=== PATIENT | female | born 1960 | race African-American/Black ===

== ENCOUNTER 2016-06-28 20:38 | Emergency (ER) | payer MEDICAID, OTHER ==
[~2016-06-28] VITALS: Ht 157.5 cm; Wt 72.6 kg
[~2016-06-28 20:38] MED LIST: AZITHROMYCIN250 MG PO; CYCLOBENZAPRINE10 MG ORAL; FLONASE1 SPRAYS; FLONASE1 SPRAYS NASAL; HYDROCHLOROTHIA25 MG ORAL; IBUPROFEN600 MG ORAL; LIDODERM700 M1 TOPIC; LORATADINE10 M2 PO; NAPROXEN250 MG PO; NORCO 5-325 TA1 EACH ORAL; PERCOCET 5-3251 EACH PO; SOMA350 MG PO; SYNTHROID25 MCG ORAL; VISTARIL25 MG ORAL; VOLTAREN100 G1 TP
[2016-06-28] MEDS ORDERED: ROBAXIN-750750 MG PO (20:57)
[2016-06-28 21:11] VITALS: BP 142/72
[2016-06-28 21:19] VITALS: BP 142/72
--- NOTE | 2016-06-28 22:18 | Emergency Room Report ---
History of Present Illness General Chief Complaint: Neck Pain Source: Patient Present Illness HPI Patient is a 55-year-old female who presented after increased neck pain. Patient gradual onset of symptoms. Patient had recent trauma. Patient states that she's had chronic pain or neck for several years and had had prior CTs of her neck which showed multiple level degenerative disc disease. Patient denied any headache. She reported having decreased efficacy of her pain medication. Allergies: Coded Allergies: No Known Allergies (Unverified , 06/21/12) Patient History Past Medical History: see triage record Now: No Reviewed Nursing Documentation: PMH: Agreed, PSxH: Agreed Nursing Documentation-PMH Hx Cardiac Problems: Yes - partial hysterectomy 2006 Hx Hypertension: Yes Hx Cancer: No Hx Gastrointestinal Problems: No Review of Systems All Other Systems: negative except mentioned in HPI Physical Exam Vital Signs Date Time Temp Pulse Resp B/P Pulse Ox O2 Delivery O2 Flow Rate FiO2 06/28/16 20:44 97.3 105 21 145/75 98 Room Air General Appearance: well appearing, no apparent distress, alert, GCS 15 Head: normocephalic, atraumatic ENT: hearing grossly normal, normal voice Neck: full range of motion, supple Respiratory: no respiratory distress, speaking full sentences Cardiovascular #1: normal inspection, regular rate, rhythm Gastrointestinal: normal inspection, normal bowel sounds, soft Musculoskeletal: no calf tenderness, decreased range of mation, other - muscle spasm to neck posteriorly Neurologic: oriented x3, normal gait Psychiatric: mood/affect normal Skin: no rash Medical Decision Making Diagnostic Impression: Primary Impression: Chronic pain ER Course Patient presented for neck pain.Differential diagnosis included vertebral artery dissection, myocardial infarction, cervical fracture, arthritis, spondylolithises. Patient's benign exam and does not appear to require any further imaging or laboratory testing at this time. This presented a chronic issue. The patient was given Valium in the emergency department. She is given prescription for Robaxin. She is advised followup with her pain management doctor as well as her primary care physician. Last Vital Signs Date Time Temp Pulse Resp B/P Pulse Ox O2 Delivery O2 Flow Rate FiO2 06/28/16 21:19 97.3 101 18 142/72 98 Room Air Status: improved Disposition: HOME, SELF-CARE Condition: Stable Scripts Methocarbamol* (ROBAXIN-750*) 750 Mg Tablet 750 MG PO TID, #21 TAB 0 Refills Prov: Nomi Quick 06/28/16 Referrals: NON PHYSICIAN (PCP) Patient Instructions: Chronic Pain Nomi Quick Jun 28, 2016 22:18
== END 2016-06-28 21:21 | disposition home or self-care (01) ==
LOC: EMR 21:00
DX: G89.29 Other chronic pain (principal); I10 Essential (primary) hypertension; Z90.710 Acquired absence of both cervix and uterus
CPT/HCPCS: 99283

== ENCOUNTER 2016-12-31 19:50 | Emergency (ER) | payer OTHER ==
[~2016-12-31] VITALS: Ht 157.5 cm; Wt 71.2 kg
[~2016-12-31 19:50] MED LIST changes: +ROBAXIN-750750 MG PO
[2016-12-31] MEDS ORDERED: Ketorolac 60mg Inj IM ONE (20:45)
[2016-12-31] MEDS ORDERED: IBUPROFEN600 MG ORAL (21:09)
[2016-12-31 21:22] VITALS: BP_SYST 112; BP_SYST 124; BP_DIAS 69; BP_DIAS 71
--- NOTE | 2016-12-31 22:04 | Emergency Room Report ---
History of Present Illness General Chief Complaint: Pain Source: Patient, Medical Record Present Illness HPI Patient is a 56-year-old female who presented after increased right ankle pain. Patient gradual onset of symptoms after inverting her ankle. Injury occurred approximately 3 days ago. The patient reported havingThe patient reported increased difficulty with ambulation. Patient had not felt any popping or crepitance. The patient stated she had been lying in bed. She denied any fever. Allergies: Coded Allergies: No Known Allergies (Unverified , 06/21/12) Patient History Last Menstrual Period: 2006 Now: No : 6 Para: 3 Nursing Documentation-PMH Hx Cardiac Problems: Yes - partial hysterectomy 2006 Hx Hypertension: Yes Hx Cancer: No Hx Gastrointestinal Problems: No Physical Exam Vital Signs Date Time Temp Pulse Resp B/P Pulse Ox O2 Delivery O2 Flow Rate FiO2 12/31/16 20:03 99.0 66 15 112/69 100 Room Air General Appearance: well appearing, no apparent distress, alert, GCS 15 Head: normocephalic, atraumatic ENT: hearing grossly normal, normal voice Neck: full range of motion, supple Respiratory: no respiratory distress, speaking full sentences Musculoskeletal: normal inspection, back normal, no calf tenderness, swelling - lateral malleolus, tender to posterior malleolus Neurologic: normal gait Psychiatric: mood/affect normal Skin: no rash Medical Decision Making Diagnostic Impression: Primary Impression: Right ankle sprain ER Course Patient presented for ankle pain. Differential diagnosis included was not limited to sprain, fracture, dislocation, cellulitis, vascular insufficiency. X -ray imaging of the ankle was ordered. X-ray imaging of the right ankle previous triggered by me showed normal alignment without fracture Other X-Ray Diagnostic Results Other X-Ray Diagnostic Results : # of Views/Limited Vs Complete: 3 View Indication: Pain EP Interpretation: Yes Interpretation: no dislocation, no fractures, other - soft tissue swelling Last Vital Signs Date Time Temp Pulse Resp B/P Pulse Ox O2 Delivery O2 Flow Rate FiO2 12/31/16 21:22 99.0 15 112/69 100 Room Air 12/31/16 21:22 88 Status: improved Disposition: HOME, SELF-CARE Condition: Stable Scripts Ibuprofen* (MOTRIN*) 600 Mg Tablet 600 MG ORAL Q8H Y for For Pain, #30 TAB 0 Refills Prov: Nomi Quick 12/31/16 Referrals: SHIVAM OHARA,REFERRING (PCP) Patient Instructions: Ankle Sprain Nomi Quick Dec 31, 2016 22:04
--- NOTE | 2017-01-01 10:44 | Diagnostic Imaging Report ---
Indication: Pain Comparison: None Findings: 3 views of the right ankle obtained. No acute fracture, malalignment, periostitis, or osteochondral defects are identified. Soft tissues are unremarkable. Impression: Negative examination
== END 2016-12-31 21:30 | disposition home or self-care (01) ==
LOC: EMR 21:00
DX: S93.401A Sprain of unspecified ligament of right ankle, initial encounter (principal); X58.XXXA Exposure to other specified factors, initial encounter; Y92.89 Other specified places as the place of occurrence of the external cause; I10 Essential (primary) hypertension; Z90.710 Acquired absence of both cervix and uterus
CPT/HCPCS: 96372; 99283

== ENCOUNTER 2017-03-10 19:25 | Emergency (ER) | payer OTHER ==
[~2017-03-10] VITALS: Ht 157.5 cm; Wt 70.8 kg
[2017-03-10 19:40] VITALS: BP 145/76
[2017-03-10 20:29] LABS: LYMPHOCYTES % (AUTO) 29.4 % (20.0-45.0); MEAN CORPUSCULAR HEMOGLOBIN 33.5 PG (27.0-31.0); MEAN CORPUSCULAR VOLUME 101 FL (80-99); MEAN PLATELET VOLUME 8.4 FL (6.5-10.1); MONOCYTES % (AUTO) 8.7 % (1.0-10.0); PLATELET COUNT 244 K/UL (150-450); RED BLOOD COUNT 3.57 M/UL (4.20-5.40); RED CELL DISTRIBUTION WIDTH 11.5 % (11.6-14.8)
[2017-03-10 20:41] LABS: ANION GAP 8 (5-15); CALCIUM 9.1 MG/DL (8.5-10.1); CARBON DIOXIDE 27 MMOL/L (21-32); CHLORIDE 100 MMOL/L (98-107); CREATININE 0.7 MG/DL (0.55-1.30); GLOMERULAR FILTRATION RATE > 60 mL/min (>60); POTASSIUM 3.5 MMOL/L (3.5-5.1); SODIUM 135 MMOL/L (136-145)
[2017-03-10] MEDS ORDERED: NAPROSYN500 M1 ORAL (20:56)
[2017-03-10 21:40] VITALS: BP 135/71
--- NOTE | 2017-03-10 22:44 | Emergency Room Report ---
History of Present Illness General Chief Complaint: Pain Source: Patient Present Illness HPI The patient is a 56-year-old female presenting for right knee pain which began yesterday for no known reason. Pain is an 8/10 dull ache and does not radiate from the knee. Worse with movement. She denies any numbness or tingling. She also noticed swelling to the right knee. Denies any injury to the area. She denies history of gout She denies any other symptoms including nausea, vomiting, fever, chills, rash Allergies: Coded Allergies: No Known Allergies (Unverified , 06/21/12) Patient History Past Medical History: see triage record Pertinent Family History: none Reviewed Nursing Documentation: PMH: Agreed, PSxH: Agreed Nursing Documentation-PMH Hx Cardiac Problems: Yes - partial hysterectomy 2006 Hx Hypertension: Yes Hx Cancer: No Hx Gastrointestinal Problems: No Review of Systems All Other Systems: negative except mentioned in HPI Physical Exam Vital Signs Date Time Temp Pulse Resp B/P (MAP) Pulse Ox O2 Delivery O2 Flow Rate FiO2 03/10/17 19:32 99.0 69 16 145/76 97 Room Air Sp02 EP Interpretation: reviewed, normal General Appearance: no apparent distress, alert, GCS 15, non-toxic Head: normocephalic, atraumatic Eyes: bilateral eye normal inspection, bilateral eye PERRL ENT: hearing grossly normal, normal pharynx, no angioedema, normal voice Neck: full range of motion, supple/symm/no masses Respiratory: chest non-tender, lungs clear, normal breath sounds, speaking full sentences Musculoskeletal: back normal, gait/station normal, normal range of motion, no calf tenderness, swelling - R knee only, tender - R knee diffusely Neurologic: alert, oriented x3, responsive, motor strength/tone normal, sensory intact, speech normal Psychiatric: judgement/insight normal, memory normal, mood/affect normal, no suicidal/homicidal ideation Skin: normal color, no rash, warm/dry, well hydrated Procedures Splinting Splinting : Consent: Verbal Location: R knee Pre-Made Type: CASEY wrap Pre-Proc Neuro Vasc Exam: normal Post-Proc Neuro Vasc Exam: normal Patient Tolerated: Well Complications: None Medical Decision Making PA Attestation Dr. Coyle is my supervising physician. Patient management was discussed with my supervising physician Diagnostic Impression: Primary Impression: Knee pain, right Qualified Codes: M25.561 - Pain in right knee ER Course The patient is a 56-year-old female presenting for right knee pain Ddx considered include but not limited to sprain/strain, fracture, contusion, gout, bursitis, among others PE: NAD Right knee has diffuse edema and tenderness to palpation. No discoloration. Full active range of motion. Skin is warm and dry. Calf is nontender. No edema. Normal gait X-ray of the right knee is unremarkable Labs unremarkable. Uric acid within normal limits Casey wrap is placed over the right knee. She'll be discharged home with prescription for pain medication. She is given rice instructions. She is to follow up with her primary doctor Laboratory Tests Test 03/10/17 20:00 White Blood Count 9.0 K/UL (4.8-10.8) Red Blood Count 3.57 M/UL (4.20-5.40) L Hemoglobin 11.9 G/DL (12.0-16.0) L Hematocrit 36.1 % (37.0-47.0) L Mean Corpuscular Volume 101 FL (80-99) H Mean Corpuscular Hemoglobin 33.5 PG (27.0-31.0) H Mean Corpuscular Hemoglobin Concent 33.0 G/DL (32.0-36.0) Red Cell Distribution Width 11.5 % (11.6-14.8) L Platelet Count 244 K/UL (150-450) Mean Platelet Volume 8.4 FL (6.5-10.1) Neutrophils (%) (Auto) 57.0 % (45.0-75.0) Lymphocytes (%) (Auto) 29.4 % (20.0-45.0) Monocytes (%) (Auto) 8.7 % (1.0-10.0) Eosinophils (%) (Auto) 3.0 % (0.0-3.0) Basophils (%) (Auto) 2.0 % (0.0-2.0) Sodium Level 135 MMOL/L (136-145) L Potassium Level 3.5 MMOL/L (3.5-5.1) Chloride Level 100 MMOL/L (98-107) Carbon Dioxide Level 27 MMOL/L (21-32) Anion Gap 8 (5-15) Blood Urea Nitrogen 7 mg/dL (7-18) Creatinine 0.7 MG/DL (0.55-1.30) Estimate Glomerular Filtration Rate > 60 mL/min (>60) Glucose Level 98 MG/DL (74-106) Uric Acid 4.4 MG/DL (2.6-7.2) Calcium Level 9.1 MG/DL (8.5-10.1) Lab Results Impression Unremarkable Other X-Ray Diagnostic Results Other X-Ray Diagnostic Results : X-Ray ordered: R knee # of Views/Limited Vs Complete: 3 View Indication: Pain EP Interpretation: Yes Interpretation: no dislocation, no fractures, other - + STS Impression: Other - STS Electronically Signed by: COREY Richards Scribe Text I have reviewed the xray with my supervising physician and interpretation is that there are no fractures, dislocations. There is some STS Last Vital Signs Date Time Temp Pulse Resp B/P (MAP) Pulse Ox O2 Delivery O2 Flow Rate FiO2 03/10/17 19:32 99.0 69 16 145/76 97 Room Air Status: improved Disposition: HOME, SELF-CARE Condition: Improved Scripts Naproxen* (NAPROSYN*) 500 Mg Tablet 500 MG ORAL TWICE A DAY, #30 TAB Prov: PHILLIP REYES 03/10/17 Patient Instructions: ARNOLDO for Routine Care of Injuries Additional Instructions: I discussed my findings with the patient. All questions and concerns have been answered. Treatment and medication compliance have been addressed. I advised the patient that they need to follow up with PMD in 3-5 days. Return to ED if pain remains or worsens, numbness or tingling occurs, new rash is noticed, fever is noticed, or if needed for any reason. Patient verbalized understanding of discharge instructions. PHILLIP REYES Mar 10, 2017 22:44
--- NOTE | 2017-03-11 10:56 | Diagnostic Imaging Report ---
Indication: PAIN Technique: 3 views of the right knee Comparison: None Findings:There is a small superior pole patellar traction osteophyte. No acute fractures. No dislocations. Joint spaces are preserved Impression:Negative
== END 2017-03-10 21:40 | disposition home or self-care (01) ==
LOC: EMR 19:47
DX: M25.561 Pain in right knee (principal); Z90.710 Acquired absence of both cervix and uterus; I10 Essential (primary) hypertension
CPT/HCPCS: 36415; 80048; 84550; 85025; 99284

== ENCOUNTER 2017-11-09 21:18 | Emergency (ER) | payer OTHER ==
[~2017-11-09] VITALS: Ht 157.5 cm; Wt 73.5 kg
[~2017-11-09 21:18] MED LIST changes: +NAPROSYN500 M1 ORAL
[2017-11-09] MEDS ORDERED: IBUPROFEN600 MG ORAL (22:06)
[2017-11-09 22:20] VITALS: BP 144/64
--- NOTE | 2017-11-10 05:55 | Emergency Room Report ---
History of Present Illness General Chief Complaint: Lower Extremity Injury Source: Patient Present Illness HPI 56-year-old female presents ED complaining of left lower extremity pain. States that it started 4 days ago. Cannot recall any specific injury but states that she was doing a lot of work in the house that day. States pain is throbbing, 7 out of 10, nonradiating. States it is difficult bear weight. No other aggravating or relieving factors. Denies any other associated symptoms Allergies: Coded Allergies: No Known Allergies (Unverified , 06/21/12) Patient History Past Medical History: HTN Past Surgical History: none Pertinent Family History: none Social History: Denies: smoking, alcohol use, drug use Last Menstrual Period: None Now: No Immunizations: UTD Reviewed Nursing Documentation: PMH: Agreed; PSxH: Agreed Nursing Documentation-PMH Hx Cardiac Problems: Yes - partial hysterectomy 2006 Hx Hypertension: Yes Hx Cancer: No Hx Gastrointestinal Problems: No Review of Systems All Other Systems: negative except mentioned in HPI Physical Exam Vital Signs Date Time Temp Pulse Resp B/P (MAP) Pulse Ox O2 Delivery O2 Flow Rate FiO2 11/09/17 21:31 99.7 87 18 144/64 99 Room Air 99.7 Sp02 EP Interpretation: reviewed, normal General Appearance: no apparent distress, alert, GCS 15, non-toxic Head: normocephalic Eyes: bilateral eye normal inspection, bilateral eye PERRL ENT: normal ENT inspection Neck: normal inspection Respiratory: normal inspection Cardiovascular #1: normal inspection Gastrointestinal: normal inspection Rectal: deferred Genitourinary: no CVA tenderness Musculoskeletal: tender - L achilles Neurologic: alert, oriented x3, responsive, motor strength/tone normal, sensory intact, speech normal Psychiatric: normal inspection Skin: normal inspection Lymphatic: normal inspection Medical Decision Making Diagnostic Impression: Primary Impression: Achilles tendon injury Qualified Codes: S86.002A - Unspecified injury of left Achilles tendon, initial encounter ER Course Hospital Course 56-year-old female presents to ED complaining of left lower extremity pain no trauma Differential diagnoses include: Fracture, dislocation, sprain, contusion, bursitis Clinical course Patient placed on stretcher. After initial history, physical exam reveals an middle-aged female in no acute distress. There is some tenderness to the L achilles. negative lee test. Remainder of exam negative. Clinical findings consistent with achilles tendinitis. Reassurance given to patient. Patient given Motrin in ED Patient given Casey wrap, crutches. Recommend ice, elevation, rest. Close follow -up with PMD Diagnosis - tendinitis of achilles stable and discharged to home with prescription for Motrin. Followup with PMD. Return to ED if symptoms recur or worsen Last Vital Signs Date Time Temp Pulse Resp B/P (MAP) Pulse Ox O2 Delivery O2 Flow Rate FiO2 11/09/17 22:20 98.6 87 18 144/64 99 Room Air 211.5 Status: improved Disposition: HOME, SELF-CARE Condition: Stable Scripts Ibuprofen* (MOTRIN*) 600 Mg Tablet 600 MG ORAL Q8H PRN for For Pain, #30 TAB 0 Refills Prov: Brad Fulton MD 11/09/17 Referrals: SHIVAM OHARA,REFERRING (PCP) Patient Instructions: Achilles Tendinitis With [facility]hab[facility] Brad Fulton MD Nov 10, 2017 05:55
== END 2017-11-09 22:30 | disposition home or self-care (01) ==
LOC: EMR 22:17
DX: S86.002A Unspecified injury of left Achilles tendon, initial encounter (principal); I10 Essential (primary) hypertension; Z90.711 Acquired absence of uterus with remaining cervical stump; X58.XXXA Exposure to other specified factors, initial encounter; Y92.009 Unspecified place in unspecified non-institutional (private) residence as the place of occurrence of the external cause
CPT/HCPCS: 99283

== ENCOUNTER 2018-06-17 09:53 | Emergency (ER) | payer OTHER ==
[~2018-06-17] VITALS: Ht 157.5 cm; Wt 73.9 kg
--- NOTE | 2018-06-17 10:10 | NUR ---
ED Nurse Note: patient walked into ED c/o slip/fall in her yard trying to open the door, slippery doorknob last night, having entire left side of body pain. pt states unable to raise left arm. has spinal/back hx of injuries in past
[2018-06-17] MEDS ORDERED: Cyclobenzaprine 10mg Tab ORAL ONE (10:30)
[2018-06-17] MEDS ORDERED: Ketorolac 60mg Inj IM ONE ×2 (10:30→11:09)
--- NOTE | 2018-06-17 10:45 | NUR ---
ED Nurse Note: pt taken down for xray
[2018-06-17 10:58] VITALS: BP 142/72
[2018-06-17] MEDS ORDERED: Cyclobenzaprine 10mg Tab ONE (11:10)
--- NOTE | 2018-06-17 11:43 | Diagnostic Imaging Report ---
Indication: left shoulder pain Findings: 3 views of the left shoulder were obtained. Alignment of the left shoulder is normal. No acute fracture is identified. Soft tissues are unremarkable. Impression: No acute injury
--- NOTE | 2018-06-17 12:18 | Emergency Room Report ---
History of Present Illness General Chief Complaint: Multiple Trauma/Fall Source: Patient Present Illness HPI Patient states that yesterday afternoon she slipped and fell onto her left side while going down stairs. She states she tried to break her fall by grabbing a doorknob and her hand slipped off of the doorknob and she has had pain in her left shoulder that is much worse with overhead movements. She also has pain and tenderness in her left upper back. She also has soreness in her left buttock. She denies weakness. She denies tingling or numbness. She denies headache or neck pain. She has no other complaints. Allergies: Coded Allergies: No Known Allergies (Unverified , 06/21/12) Patient History Past Medical History: see triage record, HTN, other - Hyperthyroid Social History: Denies: smoking, alcohol use, drug use Last Menstrual Period: na Reviewed Nursing Documentation: PMH: Agreed; PSxH: Agreed Nursing Documentation-PMH Past Medical History: No History, Except For Hx Cardiac Problems: Yes - partial hysterectomy 2006 Hx Hypertension: Yes Hx Cancer: No Hx Gastrointestinal Problems: No Hx Neurological Problems: Yes - pinched nerve in back, thyroid problem Review of Systems All Other Systems: negative except mentioned in HPI Physical Exam Vital Signs Date Time Temp Pulse Resp B/P (MAP) Pulse Ox O2 Delivery O2 Flow Rate FiO2 06/17/18 10:05 98.1 70 18 151/91 98 Room Air Sp02 EP Interpretation: reviewed, normal General Appearance: no apparent distress, alert, GCS 15, non-toxic Head: normocephalic, atraumatic Eyes: bilateral eye normal inspection, bilateral eye PERRL ENT: hearing grossly normal, normal pharynx, no angioedema, normal voice Neck: full range of motion, supple/symm/no masses Respiratory: chest non-tender, lungs clear, normal breath sounds, no respiratory distress, no retraction, no accessory muscle use, speaking full sentences Cardiovascular #1: regular rate, rhythm, no edema Gastrointestinal: normal bowel sounds, non tender, soft, non-distended, no guarding, no rebound Rectal: deferred Musculoskeletal: back normal, gait/station normal, other - Pain w/ ROM of the L. shoulder. +pain with overhead arm movement. Neurologic: alert, oriented x3, responsive, motor strength/tone normal, sensory intact, speech normal Psychiatric: judgement/insight normal, memory normal, mood/affect normal, no suicidal/homicidal ideation Skin: normal color, no rash, warm/dry, well hydrated Medical Decision Making Diagnostic Impression: Primary Impression: Unspecified injury of muscle(s) and tendon(s) of the rotator cuff of left shoulder, initial encounter Additional Impressions: Fall Muscle strain Muscle spasm ER Course It is difficult to assess this patient's rotator cuff syndrome. The patient's history and pain and examination are consistent with an injury of the rotator cuff. It is difficult to assess this is partial completely as the patient is unable to comply with the physical exam. A left shoulder x-ray shows no fracture. The patient also has other findings on exam consistent with muscle strain and muscle spasm. The patient has pain with range of motion and has tenderness to palpation along the muscle. There is no evidence of compartment syndrome. There is no neurologic deficit. The patient was instructed on supportive home measures. No emergency medical condition was identified. The patient was given return precautions and followup instructions. Other X-Ray Diagnostic Results Other X-Ray Diagnostic Results : X-Ray ordered: L. shoulder xray # of Views/Limited Vs Complete: Complete Indication: Pain EP Interpretation: No Interpretation: no fractures Impression: No acute disease Electronically Signed by: Nichelle Wang DO Last Vital Signs Date Time Temp Pulse Resp B/P (MAP) Pulse Ox O2 Delivery O2 Flow Rate FiO2 06/17/18 10:58 98.0 72 18 142/72 98 Room Air Status: improved Disposition: HOME, SELF-CARE Condition: Improved Referrals: NON PHYSICIAN (PCP) Nichelle Wang DO Jun 17, 2018 12:18
[2018-06-17] MEDS ORDERED: LIDODERM700 M1 TOPIC (12:20)
[2018-06-17] MEDS ORDERED: IBUPROFEN600 MG ORAL (12:20)
[2018-06-17] MEDS ORDERED: CYCLOBENZAPRINE10 MG ORAL (12:20)
--- NOTE | 2018-06-17 12:20 | NUR ---
ED Nurse Note: Patient is being discharged, cleared by ERMD Dr. Wang. Discharge instructions/paper given, explained, patient verbalized understanding, received signature on the paper. ID band removed. Patient ambulated out of ED with steady gait with all belongings. arm sling provided to the patient.
[2018-06-17 12:42] VITALS: BP 142/72
== END 2018-06-17 12:25 | disposition home or self-care (01) ==
LOC: EMR 10:30
DX: S46.012A Strain of muscle(s) and tendon(s) of the rotator cuff of left shoulder, initial encounter (principal); W10.9XXA Fall (on) (from) unspecified stairs and steps, initial encounter; Y92.89 Other specified places as the place of occurrence of the external cause; M62.838 Other muscle spasm; I10 Essential (primary) hypertension; Z90.710 Acquired absence of both cervix and uterus
CPT/HCPCS: 99283

== ENCOUNTER 2018-10-18 12:13 | Emergency (ER) | payer OTHER ==
[~2018-10-18] VITALS: Ht 157.5 cm; Wt 73.9 kg
[2018-10-18 13:10] VITALS: BP 139/70
--- NOTE | 2018-10-18 13:13 | NUR ---
ED Nurse Note: Patient walked in to ER c/o Rt arm pain started this morning 0200 without injury. pt aao x4 and ambulatory. calm and cooperative. skin clean and intact. Rt arm swelling noted without visible wound. pt c/o pain 11/08.
--- NOTE | 2018-10-18 13:30 | Emergency Room Report ---
History of Present Illness General Chief Complaint: General Complaint Present Illness HPI 57-year-old female presents to the emergency department complaining of localized pain is 7 out of 10 in severity to the right wrist upon awakening this a.m. Patient reports history of bilateral carpal tunnel syndrome. Patient states she is right-hand dominant and she works as a hairstylist. Patient denies specific trauma or fall that she reports deep dull throbbing pain and states that she can palpate some nodules along the bone. Patient also reports that her veins were very engorged upon awakening this morning. Patient denies paresthesias, rashes or skin color changes. Denies numbness tingling or loss of sensation or gross motor movements of the extremities, incontinence of bowel or bladder. Denies CP, Palpitations, LOC, AMS, dizziness, Changes in Vision, weakness or a sudden severe headache. She reports history of multiple slipped disc in her neck with some radiculopathy she states that she also had left rotator injury so she has to sleep on her back every single night. Patient reports some mild relief upon elevation of the right wrist with a pillow. Allergies: Coded Allergies: No Known Allergies (Unverified , 06/21/12) Patient History Past Medical History: see triage record Past Surgical History: none Pertinent Family History: none Now: No Reviewed Nursing Documentation: PMH: Agreed; PSxH: Agreed Nursing Documentation-PMH Hx Cardiac Problems: Yes - partial hysterectomy 2006 Hx Hypertension: Yes Hx Cancer: No Hx Gastrointestinal Problems: No Hx Neurological Problems: Yes - pinched nerve in back, thyroid problem Review of Systems All Other Systems: negative except mentioned in HPI Physical Exam Vital Signs Date Time Temp Pulse Resp B/P (MAP) Pulse Ox O2 Delivery O2 Flow Rate FiO2 10/18/18 12:42 98.2 66 16 98 Room Air 10/18/18 13:10 139/70 Sp02 EP Interpretation: reviewed, normal General Appearance: no apparent distress, alert, GCS 15, non-toxic Head: normocephalic, atraumatic Eyes: bilateral eye normal inspection, bilateral eye PERRL ENT: hearing grossly normal, normal voice Neck: full range of motion Respiratory: lungs clear, normal breath sounds, speaking full sentences Cardiovascular #1: regular rate, rhythm Musculoskeletal: gait/station normal, normal range of motion, tender - lateral right wrist, no obvious deformity, no open wounds, NVI, FROM with pain. Neurologic: alert, oriented x3, responsive, motor strength/tone normal, sensory intact, speech normal, grossly normal Psychiatric: judgement/insight normal Skin: normal color, no rash, warm/dry, well hydrated Medical Decision Making GIOVANY Coyle is my supervising Physician whom patient management has been discussed with. Diagnostic Impression: Primary Impression: Right wrist tendonitis ER Course 57-year-old female presents to the emergency department complaining of localized pain is 7 out of 10 in severity to the right wrist upon awakening this a.m. Patient reports history of bilateral carpal tunnel syndrome. Patient states she is right-hand dominant and she works as a [employer]. Patient denies specific trauma or fall that she reports deep dull throbbing pain and states that she can palpate some nodules along the bone. Patient also reports that her veins were very engorged upon awakening this morning. Patient denies paresthesias, rashes or skin color changes. Denies numbness tingling or loss of sensation or gross motor movements of the extremities, incontinence of bowel or bladder. Denies CP, Palpitations, LOC, AMS, dizziness, Changes in Vision, weakness or a sudden severe headache. She reports history of multiple slipped disc in her neck with some radiculopathy she states that she also had left rotator injury so she has to sleep on her back every single night. Patient reports some mild relief upon elevation of the right wrist with a pillow. Ddx considered but are not limited to Fracture, dislocation, contusion, Sprain/ Strain/Spasm, Tendinitis, radiculopathy, arthritis, DVT just to name a few Vital signs: are WNL, pt. is afebrile H&PE are most consistent with musculoskeletal injury will perform imaging to r/ o fractures/dislocations. ORDERS: - X-ray Right Wrist 3 views - negative for fx, Dislocation, or significant soft tissue injury, per preliminary read in ED, and signed by GIOVANY Mullins , my supervising physician has reviewed, and agrees with my interpretation. ED INTERVENTIONS: - Right Wrist Splint applied by biometric fingerprinting technician. Pt. remains neurovascularly intact. DISCHARGE: At this time pt. is stable for d/c to home. Will provide printed patient care instructions, and any necessary prescriptions. Care plan and follow up instructions have been discussed with the patient prior to discharge. Other X-Ray Diagnostic Results Other X-Ray Diagnostic Results : X-Ray ordered: Right wrist # of Views/Limited Vs Complete: 3 View Indication: Pain EP Interpretation: Yes GIOVANY Xray: Interpretation reviewed, by supervising MD, and agrees with findings. Interpretation: no dislocation, no soft tissue swelling, no fractures Impression: No acute disease Electronically Signed by: Sarai Mullins PA-C Last Vital Signs Date Time Temp Pulse Resp B/P (MAP) Pulse Ox O2 Delivery O2 Flow Rate FiO2 10/18/18 13:10 98.2 66 16 139/70 98 Room Air Disposition: HOME, SELF-CARE Condition: Stable Scripts Diclofenac Sodium (VOLTAREN) 100 Gm Gel..gram. 1 APPLIC TP BID, #100 GM Prov: Sarai Mullins 10/18/18 Naproxen* (NAPROXEN*) 500 Mg Tablet 500 MG ORAL TWICE A WEEK, #30 TAB 0 Refills Prov: Sarai Mullins 10/18/18 Referrals: SHIVAM OHARA,REFERRING (PCP) Patient Instructions: Flexor Carpi Ulnaris and Radialis Tendinitis, with [facility] Additional Instructions: Take medications as directed. Follow up with an PHARMACY MESSENGER in 3-5 days, even if your symptoms have resolved. If symptoms persist MRI may be required at the discretion of your PCP or Ortho Specialist. --Please review list of primary care clinics, if you do not already have a primary care provider who can give you an Orthopedic Referral. Return sooner to ED if new symptoms occur, or current symptoms become worse. - Please note that this Emergency Department Report was dictated using [employer] roller covers supervisor technology software, occasionally this can lead to erroneous entry secondary to interpretation by the dictation equipment. Sarai Mullins October 18, 2018 13:30
--- NOTE | 2018-10-18 13:31 | NUR ---
ED Nurse Note: x-ray done at bedside.
[2018-10-18] MEDS ORDERED: NAPROXEN500 M2 ORAL (13:53)
[2018-10-18] MEDS ORDERED: VOLTAREN100 G1 TP (13:53)
--- NOTE | 2018-10-18 13:57 | Diagnostic Imaging Report ---
Indication: Right wrist pain Findings: 3 views of the right wrist were obtained. No acute fractures, malalignment, erosions or periostitis are identified. Soft tissues are unremarkable. Impression: No acute findings.
[2018-10-18 14:32] VITALS: BP 139/70
--- NOTE | 2018-10-18 14:34 | NUR ---
discharged home with instruction and rx follow up with pmd splint to right wrist applied corculation normal
== END 2018-10-18 14:35 | disposition home or self-care (01) ==
LOC: EMR 12:44
DX: M77.9 Enthesopathy, unspecified (principal); I10 Essential (primary) hypertension; Z90.710 Acquired absence of both cervix and uterus
CPT/HCPCS: 29125; 99283